=== PATIENT | male | born 1960 | race Caucasian/White ===

== ENCOUNTER 2016-06-23 06:44 | Day surgery (SDC) | payer OTHER ==
[~2016-06-23] VITALS: Ht 185.4 cm; Wt 101.0 kg
[~2016-06-23 06:44] MED LIST: LACTATED RINGERS 1,000 ML IV SCH; SODIUM CHLORIDE FLUSH 3 ML SYR IV PRN
[2016-06-23 07:08] VITALS: BP 149/96
[2016-06-23] MEDS ORDERED: ALFENTANIL 500 MCG/ML (ALFENTA) 5 ML AMP IV ONE ×2 (07:43→07:44)
[2016-06-23] MEDS ORDERED: MIDAZOLAM 2 MG/2 ML (VERSED) VIAL ONE (07:43)
[2016-06-23] MEDS ORDERED: PROPOFOL 20 ML IV ONE (07:43)
[2016-06-23 08:54] VITALS: BP 139/86
[2016-06-23 09:14] VITALS: BP 121/92
== END 2016-06-23 09:16 | disposition home or self-care (01) ==
LOC: ASC 06:44
PROVIDERS: ATTEND Surgery
DX: D12.2 Benign neoplasm of ascending colon (principal); D12.3 Benign neoplasm of transverse colon; Z86.010 Personal history of colon polyps; I25.10 Atherosclerotic heart disease of native coronary artery without angina pectoris
CPT/HCPCS: 45384; 93005; J2250; J7120